=== PATIENT | male | born 1960 | race Caucasian/White ===

== ENCOUNTER → 2018-08-02 07:44 | Emergency (ER) | payer BC ==
[~2018-08-02 07:44] MED LIST: Midazolam* 1 MG/ML 10 ML VIAL (10 MG) ONE; Nitroglycerin TAB 0.4 MG* 0.4 MG TAB SL ONE; fentaNYL* 50 MCG/ML 2 ML VIAL (100 MCG VIAL) ONE
--- NOTE | 2018-08-02 08:08 | ED ---
Throat Pain/Nasal Congestion - HPI Summary HPI Summary: Patient is a 58 y/o male who presents to the ED c/o epigastric pain. Last night he was eating chicken when he suddenly had an epigastric FB sensation and epigastric pain rated an 8/10 in severity. Pt notes that he was drinking alcohol last night as well. Throughout the night the pain began to subside, but it returned this morning after having orange juice. Pain is currently rated a 2/ 10 in severity. Patient notes that this has happened frequently in the past, however has never sought medical attention. He reports difficulty with secretions and swallowing. Patient denies any fever, chills, N/V, or hematochezia. He drinks alcohol nearly daily. Patient denies the use of NSAIDs. He denies any hx of blood clots. - History of Current Complaint Chief Complaint: EDChestPainROMI Time Seen by Provider: 08/02/18 08:01 Hx Obtained From: Patient Onset/Duration: Sudden Onset, Lasting Days - Last night, Still Present Severity: Mild - 2/10 Associated Signs And Symptoms: Positive: FB Sensation Cough: None Related History: Other (Noted In Comments) - daily alcohol use - Allergies/Home Medications Allergies/Adverse Reactions: Allergies Allergy/AdvReac Type Severity Reaction Status Date / Time No Known Allergies Allergy Verified 08/02/18 07:54 PMH/Surg Hx/FS Hx/Imm Hx Endocrine/Hematology History: Denies: Hx Diabetes Cardiovascular History: Reports: Hx Hypercholesterolemia - possible, Other Cardiovascular Problems/Disorders - SVT Denies: Hx Hypertension Infectious Disease History: No Infectious Disease History: Denies: Traveled Outside the [place] in Last 30 Days - Family History Known Family History: Negative: Diabetes - Social History Alcohol Use: Daily Hx Substance Use: No Substance Use Type: Reports: None Hx Tobacco Use: Yes Smoking Status (MU): Former Smoker Review of Systems Negative: Fever, Chills Positive: Other - FB sensation, difficulty with secretions Positive: Abdominal Pain - epigastric pain. Negative: Vomiting, Nausea, Other - hematochezia All Other Systems Reviewed And Are Negative: Yes Physical Exam - Summary Physical Exam Summary: GENERAL: Patient is a well-developed and nourished M who is lying comfortable in the stretcher. Patient is not in any acute respiratory distress. HEAD AND FACE: Normocephalic EYES: PERRLA, EOMI x 2. EARS: Hearing grossly intact. MOUTH: Oropharynx within normal limits. NECK: Supple, trachea is midline, no adenopathy, no JVD, no carotid bruit. CHEST: Symmetric, no tenderness at palpation LUNGS: Clear to auscultation bilaterally. No wheezing or crackles. CVS: Regular rate and rhythm, S1 and S2 present, no murmurs or gallops appreciated. ABDOMEN: Soft, non-tender. Bowel sounds are normal. No abnormal abdominal pulsations. EXTREMITIES: Full ROM in all major joints, no edema, no cyanosis or clubbing. NEURO: Alert and oriented x 3. No acute neurological deficits. Speech is normal and follows commands. SKIN: Dry and warm Triage Information Reviewed: Yes Vital Signs On Initial Exam: Initial Vitals Temp Pulse Resp BP Pulse Ox 97.8 F 90 18 171/118 97 08/02/18 07:52 08/02/18 07:52 08/02/18 07:52 08/02/18 07:52 08/02/18 07:52 Vital Signs Reviewed: Yes Diagnostics - Vital Signs Vital Signs Temp Pulse Resp BP Pulse Ox 08/02/18 07:52 97.8 F 90 18 171/118 97 - Laboratory Result Diagrams: 08/02/18 08:08 08/02/18 08:08 Lab Statement: Any lab studies that have been ordered have been reviewed, and results considered in the medical decision making process. - Radiology CXR Radiology Interpretation Completed By: Radiologist Summary of Radiographic Findings: No active cardiopulmonary disease. ED physician reviewed radiology report. - EKG 7:59 Cardiac Rate: NL - 80 bpm EKG Rhythm: Sinus Rhythm ST Segment: Normal Summary of EKG Findings: Nl axis Re-Evaluation - Re-Evaluation First Eval Re-Evaluation Time: 09:20 Change: Unchanged Comment: Pt did not respond to NTG. Second Eval Re-Evaluation Time: 10:02 Change: Worse Comment: Pt is now vomiting after drinking water. EENT Course/Dx - Course Course Of Treatment: Patient is a 58 y/o male who presents to the ED c/o epigastric FB sensation and epigastric pain s/p eating chicken. He reports difficulty with secretions and swallowing. Patient notes that this has happened frequently in the past, however has never sought medical attention. A physical exam was normal. A CXR was negative. An EKG was NSR at 80 bpm. Patient did not respond to NTG. GI consult by Dr. Mckenzie, and he performed an upper endoscopy at bedside. He found a chicken bolus and removed it. Pain most likely due to esophageal food impaction. Dr. Mckenzie recommends discharging with Omeprazole, and to follow up in one month. Patient should only eat soft food for 48 hours. Final dx of food impaction. Patient will be discharged. I discussed results with patient, and he reports feeling better. He is hemodynamically stable and safe for discharge. Strict return precautions given and he will otherwise follow up with his PCP. - Diagnoses Provider Diagnoses: Food impaction of esophagus - Provider Notifications Discussed Care Of Patient With: Luis Mckenzie Time Discussed With Above Provider: 10:07 Instructed by Provider To: Other - Dr. Mckenzie will come to the ED. At 13:05 GI team is in the room for an endoscopy. Discharge - Sign-Out/Discharge Documenting (check all that apply): Patient Departure - Discharge Patient Received Moderate/Deep Sedation with Procedure: No - Discharge Plan Condition: Improved Disposition: HOME Prescriptions: Omeprazole 40 mg PO DAILY #30 capsule. Patient Education Materials: Food Impaction (ED) Forms: *Work Release Referrals: [facility]ERR[facility] [Outside] (1-3 days) Luis Mckenzie MD [Medical Doctor] - (1 month) Additional Instructions: Only eat soft food for 48 hours. RETURN TO THE EMERGENCY DEPARTMENT FOR CHANGING OR WORSENING SYMPTOMS. - Attestation Statements Document Initiated by Scribe: Yes Documenting Scribe: Jerrica Cohn Provider For Whom Scribe is Documenting (Include Credential): Pete Hall MD Scribe Attestation: Jerrica Doherty, scribed for Pete Hall MD on 08/02/18 at 1503. Status of Scribe Document: Ready
[2018-08-02 08:29] LABS: ABS Eosinophils 0.2 10^3/ul (0-0.6); ABS Lymphocytes 1.9 10^3/ul (1.0-4.8); ABS Monocytes 0.6 10^3/ul (0-0.8); ABS Neutrophils 5.6 10^3/ul (1.5-7.7); Eosinophil % 2.9 %; Hematocrit 48 % (42-52); Hemoglobin 16.7 g/dL (14.0-18.0); Lymphocyte % 22.9 %; Mean Corpuscular HGB Conc 35 g/dL (31-36); Mean Corpuscular Hemoglobin 33 pg (27-31); Mean Corpuscular Volume 94 fL (80-94); Mean Platelet Volume 7.9 fL (7.4-10.4); Nucleated Red Blood Cells % 0.1; Platelet Count 226 10^3/uL (150-450); Red Blood Count 5.08 10^6 /uL (4.18-5.48); Red Cell Distribution Width 13 % (10.5-15); White Blood Count 8.4 10^3/uL (3.5-10.8)
[2018-08-02 08:36] LABS: Activated Partial Thrombo Time 28.4 seconds (26.0-36.3); Albumin 4.7 g/dL (3.2-5.2); Albumin/Globulin Ratio 1.6 (1-3); BUN/Creatinine Ratio 14.8 (8-20); Calcium 9.1 mg/dL (8.6-10.3); EGFR Non-African American 89.3 (>60); INR 0.91 (0.82-1.09); Total Bilirubin 0.6 mg/dL (0.2-1.0); Total Protein 7.7 g/dL (6.4-8.9)
[2018-08-02 09:03] LABS: Magnesium 2.3 mg/dL (1.9-2.7); Potassium 4.1 mmol/L (3.5-5.0)
--- NOTE | 2018-08-02 14:00 | CONS ---
GASTROENTEROLOGY CONSULT: DATE: 08/02/18 CONSULTING PHYSICIAN: Pete Hall MD. REASON FOR CONSULTATION: Dysphagia, recurrently over 1 to 2 years. 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 It often causes chest pain when this happens. Nonetheless, he did manage to sleep a couple of hours, but decided to come to the emergency room when he had a continuing sense that he was plugged up and could not swallow any liquid. He has been having these kind of events every week or every month and he says "it brings me to my knees." He has not had any vomiting. He typically waits it out and it can be 1 to 3 hours. This is the longest episode ever. He does not specifically recall which foods have been involved. He has little bit of heartburn, but only takes Tums every month or 2. He has never been on an acid blocking pill or prescription. He has never seen a doctor for this. He cannot remember the name of the doctor he last saw, as it was several years ago. PAST MEDICAL HISTORY: Right hip surgery age 10 with no need for NSAIDs currently. SOCIAL HISTORY: He is . He does not smoke or chew tobacco. He does drink considerable vodka. He has no primary MD (no visits over 5 yrs) REVIEW OF SYSTEMS: He eats a general diet. There has been no history of cough , hemoptysis, syncope, seizures, exertional chest pain, heart murmur, hepatitis , jaundice, or colonoscopy. EXAM: He is a healthy-appearing man, in no acute distress at this moment. HEENT exam is unremarkable. He has no icterus. Mucous membranes are normal. There is no adenopathy. Lungs are clear and heart sounds are regular. The abdomen is symmetric with normal bowel sounds, firm without focal finding. Rectal deferred. Extremities showed no edema. Neurologic is nonfocal with symmetric cranial nerves and movement of all 4 extremities. CHEST X-RAY: Unremarkable. Labs normal - Hg 16.7 Hct 48 MCV 94 INR -.91 Alb 4.7 ALT 26 Alk Phos 55 IMPRESSION: Solid food dysphagia extending over a long enough period of time, that a benign process is most likely. Relieving the obstruction comes first and then likely dilation at a later time and assessment of the cause of narrowing. [id number]/CPS #: [id number] MTDD
[2018-08-02 14:46] VITALS: BP 124/89
--- NOTE | 2018-08-02 20:56 | PRO ---
DATE: 08/02/18 REFERRING PHYSICIAN: Pete Hall, emergency room.* PROCEDURE: Upper gastrointestinal endoscopy and clearance of esophageal foreign body and biopsy mid esophagus at 30 cm and CLOtest. 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 He has periodically had a sense of improvement, but has not been able to tolerate fluids. He has had similar shorter duration episodes going back a year or two. See separate consult. He is aware that there is a small chance of needing to be admitted to the hospital and dealing with esophageal plugging. ENDOSCOPIST: Dr. Mckenzie. MEDICATIONS: Midazolam 9, fentanyl 100. FINDINGS: He is a healthy appearing, middle-aged man in no overt distress, though has an emesis basin in front of him. He is positioned left side down and moderate sedation induced with sequential doses of medication. He tolerated the exam very well. ESOPHAGOGASTRODUODENOSCOPY: Larynx - somewhat irregular contours without gross mass. Irregularity was over the estimated hard palate. Esophagus - normal mucosa at the cricopharyngeus and upper esophagus. There is a ring-like configuration beginning at about 28 and continuing down to 40 where the chicken bolus is located. It pops into the gastric fundus immediately. There is then a very irritated and eroded GE junction at about 39 to 40 cm. There is no obvious Reveles's change or impressive stricture. The food bolus was at least ping pong ball size and maybe golf ball size. Two biopsies were obtained from mid esophagus and an area with the ringlet edema. Stomach - generally normal contours and rugal folds. There is mild but diffuse granularity and punctate erythema in the distal gastric body and proximal antrum. A CLOtest taken. The distal antrum appears normal. Duodenum - the pylorus and bulb just show some patchy edema and erythema on folds without any exudates or erosions. The second and third portions of the duodenum were normal. IMPRESSION: 1. Esophageal foreign body - relieved. 2. Small to medium hiatal hernia. 3. Gastroesophageal reflux disease - omeprazole 40 mg q.a.m. to start. 4. Gastritis - CLOtest pending. Most important step is for him to slow down and chew his food more thoroughly Addendum: Clotest negative; esophageal Bx EE [id number]/CPS #: [id number] MTDD
== END | disposition home or self-care (01) ==
LOC: ED 07:44
DX: T18.128A Food in esophagus causing other injury, initial encounter (principal); X58.XXXA Exposure to other specified factors, initial encounter; Y93.89 Activity, other specified; Y92.9 Unspecified place or not applicable; Y99.8 Other external cause status; E78.00 Pure hypercholesterolemia, unspecified; Z87.891 Personal history of nicotine dependence
CPT/HCPCS: 36415; 42809; 71046; 80053; 83605; 83690; 83735; 83880; 84484; 85025; 85379; 85610; 85730; 87077; 88305; 93005; 96374; 96375; 99156; 99283; A9270-GY; J2250; J3010